=== PATIENT | male | born 1980 | race Caucasian/White ===

== ENCOUNTER 2018-08-18 18:08 | Emergency (ER) | payer MEDICAID ==
[~2018-08-18] VITALS: Ht 185.4 cm; Wt 86.2 kg
[2018-08-18 18:31] VITALS: BP 126/82
[2018-08-18] MEDS ORDERED: LIDOCAINE-MPF 1%, 5ML INFIL ONE (19:00)
== END 2018-08-18 21:13 | disposition home or self-care (01) ==
LOC: ED 21:05
DX: L02.416 Cutaneous abscess of left lower limb (principal); F15.20 Other stimulant dependence, uncomplicated; Z72.9 Problem related to lifestyle, unspecified
CPT/HCPCS: 10060; 99284